=== PATIENT | female | born 1985 | race Caucasian/White ===

== ENCOUNTER 2019-02-10 09:30 | Inpatient (IN) | payer OTHER ==
[~2019-02-10] VITALS: Ht 162.6 cm; Wt 116.2 kg
[2019-03-29] VITALS (11 sets, daily range): BP systolic 104–137; BP diastolic 60–89; PULSE 57–96; TEMP 8.5
[2019-03-29] MEDS ORDERED: CIPRO 500MG TA500 MG PO (07:15)
[2019-03-29] MEDS ORDERED: VTAMINC250TA PO (07:30)
[2019-03-29] MEDS ORDERED: ELDERBERRY PO (07:31)
[2019-03-30 00:44] VITALS: BP 103/53; PULSE 97; TEMP 98.4
[2019-03-30 04:15] VITALS: BP 124/67; PULSE 76; TEMP 99.2
[2019-03-30 08:15] VITALS: BP 110/59; PULSE 79; TEMP 98.5
[2019-03-30 12:22] VITALS: BP 130/65; PULSE 90; TEMP 98.2
[2019-03-30 16:34] VITALS: BP 138/75; PULSE 75; TEMP 98.1
[2019-03-30 20:16] VITALS: BP 113/70; PULSE 78; TEMP 98.4
[2019-03-31 00:43] VITALS: BP 105/56; PULSE 67; TEMP 98.4
[2019-03-31 04:30] VITALS: BP 128/72; PULSE 74; TEMP 98.3
[2019-03-31 08:54] VITALS: BP 138/74; PULSE 98; TEMP 98.4
== END 2019-03-31 11:32 | disposition home or self-care (01) | DRG 660 ==
LOC: INPTSU 03-29 06:19 → SURG 03-29 08:00
PROVIDERS: ADMIT Urology
PROC: 8E0W4CZ Robotic Assisted Procedure of Trunk Region, Percutaneous Endoscopic Approach (ICD-10-PCS; 2019-03-29)
PROC: 0TT14ZZ Resection of Left Kidney, Percutaneous Endoscopic Approach (ICD-10-PCS; principal; 2019-03-29 08:00)
DX: N26.1 Atrophy of kidney (terminal) (principal); N39.0 Urinary tract infection, site not specified; Z68.41 Body mass index [BMI] 40.0-44.9, adult; N39.41 Urge incontinence; B37.3 Candidiasis of vulva and vagina; G89.29 Other chronic pain; F32.9 Major depressive disorder, single episode, unspecified; I10 Essential (primary) hypertension; I25.10 Atherosclerotic heart disease of native coronary artery without angina pectoris; E66.9 Obesity, unspecified; F41.9 Anxiety disorder, unspecified; I25.2 Old myocardial infarction; Z90.89 Acquired absence of other organs; Z90.49 Acquired absence of other specified parts of digestive tract; Z90.721 Acquired absence of ovaries, unilateral
CPT/HCPCS: A4314; A9284; J0330; J1170; J1650; J2250; J2405; J2704; J3010; J7120

== ENCOUNTER → 2020-03-14 | Outpatient (CLI) | payer OTHER ==
[~2020-03-14] MED LIST: CIPRO 500MG TA500 MG PO; ELDERBERRY PO; VTAMINC250TA PO
== END ==
LOC: MHCPAIN 08:16
DX: M47.817 Spondylosis without myelopathy or radiculopathy, lumbosacral region (principal); M54.5 Low back pain; M53.3 Sacrococcygeal disorders, not elsewhere classified; G89.29 Other chronic pain
CPT/HCPCS: G0463; J1040

== ENCOUNTER → 2020-04-16 | Outpatient (CLI) | payer OTHER | LOC: MHCPAIN 09:27 | DX: M47.817 Spondylosis without myelopathy or radiculopathy, lumbosacral region (principal); M54.6 Pain in thoracic spine; M54.5 Low back pain; M53.3 Sacrococcygeal disorders, not elsewhere classified; G89.29 Other chronic pain | CPT/HCPCS: G0463 ==